=== PATIENT | male | born 1970 | race Hispanic/Latino ===

== ENCOUNTER 2023-03-01 15:01 | Emergency (ER) | payer SELFPAY ==
[2023-03-01 15:04] VITALS: BP 102/70; PULSE 102; RESP 17; TEMP 36.3; O2SAT 98; BMI 25.8
--- NOTE | 2023-03-01 16:40 | DI.CT.S_ITS ---
PROCEDURE: CT HEAD/BRAIN WO CON INDICATIONS: feels weird. Patient reports history of concussion. TECHNIQUE: Noncontrast 4.5 mm thick angled axial sections acquired from the foramen magnum to the vertex, with coronal and sagittal reformats. For radiation dose reduction, the following was used: automated exposure control, adjustment of mA and/or kV according to patient size. COMPARISON: None. FINDINGS: Image quality: Excellent. CSF spaces: Basal cisterns are patent. No extra-axial fluid collections. Ventricles are normal in size and shape. Brain: No midline shift. No intracranial masses or hemorrhage. Alexis-white matter interface is normal. Skull and face: Calvarium and visualized facial bones are intact, without suspicious lesions. Sinuses: Circumferential thickening of the left maxillary sinus and trace mucosal thickening of the right maxillary sinus. IMPRESSION: No acute intracranial pathology. Dictated by: Ata Burnett M.D. on 03/01/2023 at 16:57 Approved by: Ata Burnett M.D. on 03/01/2023 at 17:01
[2023-03-01 17:03] LABS: Appearance Urine UA CLEAR; Bilirubin Urine UA NEGATIVE (NEGATIVE); Color Urine UA YELLOW; Glucose Urine UA NEGATIVE (Negative); Ketones Urine UA NEGATIVE (NEGATIVE); Leukocyte Esterase Urine UA 2+ (NEGATIVE); Nitrite Urine UA NEGATIVE (Negative); Occult Blood Urine UA NEGATIVE (Negative); Protein Urine UA NEGATIVE (Negative); Urobilinogen Urine UA 0.2 E.U./dL (0.2)
[2023-03-01 17:06] LABS: UR Morphine/Opiate cutoff 300 Negative (Negative); Ur Creatinine Normal (Normal); Ur Specific Gravity Normal (Normal); Urine Amphetamines Negative (Negative); Urine Barbiturates Negative (Negative); Urine Benzodiazepines Negative (Negative); Urine Cocaine Negative (Negative); Urine MDMA Negative (Negative); Urine Methadone Negative (Negative); Urine Methamphetamines Negative (Negative); Urine Oxycodone Negative (Negative); Urine Phencyclidine Negative (Negative); Urine Tetrahydrocannabinol Negative (Negative); Urine Tricyclic Antidepressant Negative (Negative); Urine pH Normal (Normal)
[2023-03-01 17:10] LABS: Add Manual Diff / Slide Review NO; Basophils Absolute Auto 100 /uL (0-100); Basophils Percent Auto 0.8 % (0-2); Eosinophils Absolute Auto 100 /uL (0-450); Eosinophils Percent Auto 0.7 % (2-4); Hematocrit 38.4 % (41-53); Hemoglobin 13.3 g/dL (13.5-17.5); Lymphocytes Absolute Auto 1400 /uL (1100-4500); Lymphocytes Percent Auto 16.7 % (25-40); Mean Corpuscular HGB Conc 34.5 % (30-36); Mean Corpuscular Hemoglobin 30.5 PG (26-34); Mean Corpuscular Volume 88.2 fL (80-100); Monocytes Absolute Auto 500 /uL (0-900); Monocytes Percent Auto 5.8 % (3-14); Neutrophils Absolute Auto 6200 /uL (1500-7000); Platelet Count 279 X10^3/uL (150-400); Red Blood Cell Count 4.35 X10^6/uL (4.5-5.9); Red Cell Distribution Width 12.7 % (11.6-14.8); White Blood Cell Count 8.1 X10^3/uL (4.5-11.0)
[2023-03-01 17:13] LABS: Bacteria Urine None Seen; Culture Indicated Urine Specimen Cultured; Mucus Urine 1+ (Negative); RBC Urine None Seen (0-5/HPF); Squamous Epithelial Cell Urine None Seen (0-5/HPF); WBC Urine 0-1/HPF (0-5/HPF)
[2023-03-01 17:15] LABS: Alanine Aminotransferase 17 IU/L (<50); Albumin 4.3 g/dL (3.5-5.0); Albumin Globulin Ratio 1.3 (1.0-2.8); Alkaline Phosphatase 83 U/L (38-126); Aspartate Aminotransferase 24 IU/L (17-59); BUN Creatinine Ratio 11.4 (6-22); Bilirubin Total 0.8 mg/dL (0.2-1.3); Blood Urea Nitrogen 10 mg/dL (9-20); Carbon Dioxide 30 mmol/L (22-32); Chloride 99 mmol/L (98-107); Estimated Glomerular Filt Rate > 60 mL/min (>60); Globulin 3.3 g/dL (1.7-4.1); Glucose 87 mg/dL (70-100); HEMOLYSIS < 15 (0-50); Sodium 137 mmol/L (137-145); Total Protein 7.6 g/dL (6.3-8.2)
[2023-03-01 17:28] LABS: COVID19 -Nasal RAPID Negative (Negative)
--- NOTE | 2023-03-01 17:28 | ED_ITS ---
HPI - Head Injury <Chelsea Felder, [facility] - Last Filed: 03/01/23 18:42> General Chief complaint: Weakness Stated complaint: feeling weird Time Seen by Provider: 03/01/23 15:41 Source: patient Mode of arrival: Ambulatory History of Present Illness HPI Narrative: This is a 52-year-old [place]er-speaking male who presents to the emergency department after a closed head injury in July of 2022 stating he had a close head injury and July with a concussion, states that since then he is had symptoms of being tired, having muscle aches, feeling disoriented, having fears about what he is doing, tremors and difficulty workman. States that his symptoms have gotten worse over the last few days, denies being on blood thinners, does not have any current life stressors, denies any new medications, denies any stool changes or urinary changes. Denies upper respiratory symptoms. Denies vomiting, neck pain, states that he is had blurry vision since this head injury and had to get glasses and he has not had any resolution in the blurry vision. States that it becomes worse with activity and his vision has not felt good, he endorses feeling unstable when walking, he is had muscle wasting and 25 lb of weight loss without changes in his diet. He is eating and drinking plenty of water he states. He endorses extreme muscle fatigue and states that he can not tolerate normal activities and has not been able to go back to work. He states that he is extremely anxious about his symptoms, he had an MRI of his s pine in [place] in August which did not show any cervical thoracic or lumbar spine abnormalities other than cervical spine arthritis and degenerative joint disease. States that he has not been feeling like himself. He is had brain fog, difficulty with his thoughts, blurry vision and feeling unstable since this incident. States that his vision is getting worse. He comes to the emergency department today for an MR of his brain states that his primary care provider completed lab work and other studies which all came back negative. He denies any drug use. Denies alcohol consumption. Related Data Previous Rx's Medication Instructions Recorded lorazepam 1 mg tablet 1 mg PO BID PRN anxiety #10 tabs 03/01/23 nitrofurantoin 100 mg PO BID 5 days #10 caps 03/01/23 monohydrate/macrocrystals 100 mg capsule (Macrobid) Allergies Allergy/AdvReac Type Severity Reaction Status Date / Time No Known Drug Allergies Allergy Verified 03/01/23 15:28 Review of Systems <TAZ Villanueva - Last Filed: 03/01/23 18:42> Review of Systems ROS Unobtainable: All systems reviewed & are unremarkable except as noted in HPI and below Patient History <TAZ Villanueva - Last Filed: 03/01/23 18:42> Social History Smoking Status: Never smoker Smoking Status: Never smoker Substance Use Type: does not use Exam <TAZ Villanueva - Last Filed: 03/01/23 18:42> Narrative Exam Narrative: Reviewed vitals signs and nursing notes. General: Pleasant, sitting upright, in no acute distress, well groomed, afebrile HEENT: symmetrical facial expressions, moist mucous membranes, neck is supple, no midline cervical spine tenderness palpation, patient is wearing glasses, states they are new since the accident needs blurry vision CV: regular rate and rhythm, warm extremities Respiratory: normal work of breathing, without tachypnea or hypoxia. GI: abdomen soft, nondistended, without CVA tenderness bilaterally. MSK: moves all extremities, no weakness, normal tone, ambulatory without deficit Skin: brisk capillary refill, without rash or wound Neuro: clear speech and normal cognition, A&O x3, GCS 15, no focal motor or sensation deficits Initial Vital Signs Initial Vital Signs: Vital Signs Temperature 97.4 F L 03/01/23 15:04 Pulse Rate 102 H 03/01/23 15:04 Respiratory Rate 17 03/01/23 15:04 Blood Pressure 102/70 03/01/23 15:04 Pulse Oximetry 98 03/01/23 15:04 Oxygen Delivery Method Room Air 03/01/23 15:04 <Bimal Shah DO - Last Filed: 03/02/23 20:02> Initial Vital Signs Initial Vital Signs: Vital Signs Temperature 97.4 F L 03/01/23 15:04 Pulse Rate 102 H 03/01/23 15:04 Respiratory Rate 17 03/01/23 15:04 Blood Pressure 102/70 03/01/23 15:04 Pulse Oximetry 98 03/01/23 15:04 Oxygen Delivery Method Room Air 03/01/23 15:04 Course <AMY VillanuevaP - Last Filed: 03/01/23 18:42> Orders Ordered: Discontinued Medications Acetaminophen (Acetaminophen 325 Mg Tablet) 975 mg PO NOW ONE Stop: 03/01/23 17:31 Last Admin: 03/01/23 18:10 Dose: 975 mg Documented By: CELESTINA Ketorolac Tromethamine (Ketorolac 10 Mg Tablet) 10 mg PO NOW ONE Stop: 03/01/23 17:31 Last Admin: 03/01/23 18:10 Dose: 10 mg Documented By: CELESTINA Lorazepam (Lorazepam 2 Mg/Ml Inj) 1 mg IV NOW ONE Stop: 03/01/23 18:17 Last Admin: 03/01/23 18:24 Dose: Not Given Documented By: CLAUDETTE Nitrofurantoin Macrocrystals (Nitrofurantoin Er 100 Mg Capsule) 100 mg PO NOW ONE Stop: 03/01/23 17:31 Last Admin: 03/01/23 18:10 Dose: 100 mg Documented By: CELESTINA Vital Signs Vital signs: Vital Signs - 8 hr 03/01/23 15:04 03/01/23 18:41 Temperature 97.4 F L Pulse Rate 102 H 77 Respiratory Rate 17 17 Blood Pressure 102/70 120/73 Pulse Oximetry 98 99 Oxygen Delivery Method Room Air Room Air <Bimal Shah DO - Last Filed: 03/02/23 20:02> Orders Ordered: Discontinued Medications Acetaminophen (Acetaminophen 325 Mg Tablet) 975 mg PO NOW ONE Stop: 03/01/23 17:31 Last Admin: 03/01/23 18:10 Dose: 975 mg Documented By: CELESTINA Ketorolac Tromethamine (Ketorolac 10 Mg Tablet) 10 mg PO NOW ONE Stop: 03/01/23 17:31 Last Admin: 03/01/23 18:10 Dose: 10 mg Documented By: CELESTINA Lorazepam (Lorazepam 2 Mg/Ml Inj) 1 mg IV NOW ONE Stop: 03/01/23 18:17 Last Admin: 03/01/23 18:24 Dose: Not Given Documented By: CLAUDETTE Nitrofurantoin Macrocrystals (Nitrofurantoin Er 100 Mg Capsule) 100 mg PO NOW ONE Stop: 03/01/23 17:31 Last Admin: 03/01/23 18:10 Dose: 100 mg Documented By: CELESTINA Vital Signs Vital signs: Vital Signs - 8 hr 03/01/23 15:04 03/01/23 18:41 Temperature 97.4 F L Pulse Rate 102 H 77 Respiratory Rate 17 17 Blood Pressure 102/70 120/73 Pulse Oximetry 98 99 Oxygen Delivery Method Room Air Room Air MDM - Head Injury <Chelsea Felder, [facility] - Last Filed: 03/01/23 18:42> Lab Data 03/01/23 16:45 03/01/23 16:45 Labs: Lab Results 03/01/23 03/01/23 03/01/23 Range/Units 16:45 16:45 16:45 WBC 8.1 (4.5-11.0) X10^3/uL RBC 4.35 L (4.5-5.9) X10^6/uL Hgb 13.3 L (13.5-17.5) g/dL Hct 38.4 L (41-53) % MCV 88.2 (80-100) fL MCH 30.5 (26-34) PG MCHC 34.5 (30-36) % RDW 12.7 (11.6-14.8) % Plt Count 279 (150-400) X10^3/uL Neut % (Auto) 76.0 H (50-75) % Lymph % (Auto) 16.7 L (25-40) % Louisa % (Auto) 5.8 (3-14) % Eos % (Auto) 0.7 L (2-4) % Baso % (Auto) 0.8 (0-2) % Neut # (Auto) 6200 (8636-3158) /uL Lymph # (Auto) 1400 (5965-7219) /uL Louisa # (Auto) 500 (0-900) /uL Eos # (Auto) 100 (0-450) /uL Baso # (Auto) 100 (0-100) /uL Sodium 137 (137-145) mmol/L Potassium 4.0 (3.4-5.1) mmol/L Chloride 99 (98-107) mmol/L Carbon Dioxide 30 (22-32) mmol/L BUN 10 (9-20) mg/dL Creatinine 0.88 (0.66-1.25) mg/dL Estimated GFR > 60 (>60) mL/min BUN/Creatinine Ratio 11.4 (6-22) Glucose 87 (70-100) mg/dL Calcium 9.0 (8.4-10.2) mg/dL Magnesium 2.0 (1.6-2.3) mg/dL Total Bilirubin 0.8 (0.2-1.3) mg/dL AST 24 (17-59) IU/L ALT 17 (<50) IU/L Alkaline Phosphatase 83 (38-126) U/L Total Protein 7.6 (6.3-8.2) g/dL Albumin 4.3 (3.5-5.0) g/dL Globulin 3.3 (1.7-4.1) g/dL Albumin/Globulin Ratio 1.3 (1.0-2.8) Urine Color Urine Appearance Urine pH (4.5-8.0) Ur Specific [place] (1.000-1.035) Urine Protein (Negative) Urine Glucose (UA) (Negative) g/dL Urine Ketones (NEGATIVE) Urine Occult Blood (Negative) Urine Nitrate (Negative) Urine Bilirubin (NEGATIVE) Urine Urobilinogen (0.2) E.U./dL Ur Leukocyte Esterase (NEGATIVE) Urine RBC (0-5/HPF) Urine WBC (0-5/HPF) Ur Squamous Epith Cells (0-5/HPF) Urine Bacteria (None) Urine Mucus (Negative) Ur Culture Indicated? U Opiates 300ng/mL cut (Negative) Ur Oxycodone Screen (Negative) Urine Methadone Screen (Negative) Ur Barbiturates Screen (Negative) U Tricyclic Antidepress (Negative) Ur Phencyclidine Scrn (Negative) Ur Amphetamines Screen (Negative) U Methamphetamines Scrn (Negative) Ur MDMA Scrn (Ecstasy) (Negative) U Benzodiazepines Scrn (Negative) Urine Cocaine Screen (Negative) U Marijuana (THC) Screen (Negative) SARS-CoV-2 (PCR) (Negative) 03/01/23 03/01/23 03/01/23 Range/Units 16:45 17:00 17:00 WBC (4.5-11.0) X10^3/uL RBC (4.5-5.9) X10^6/uL Hgb (13.5-17.5) g/dL Hct (41-53) % MCV (80-100) fL MCH (26-34) PG MCHC (30-36) % RDW (11.6-14.8) % Plt Count (150-400) X10^3/uL Neut % (Auto) (50-75) % Lymph % (Auto) (25-40) % Louisa % (Auto) (3-14) % Eos % (Auto) (2-4) % Baso % (Auto) (0-2) % Neut # (Auto) (0497-3547) /uL Lymph # (Auto) (3772-3597) /uL Louisa # (Auto) (0-900) /uL Eos # (Auto) (0-450) /uL Baso # (Auto) (0-100) /uL Sodium (137-145) mmol/L Potassium (3.4-5.1) mmol/L Chloride (98-107) mmol/L Carbon Dioxide (22-32) mmol/L BUN (9-20) mg/dL Creatinine (0.66-1.25) mg/dL Estimated GFR (>60) mL/min BUN/Creatinine Ratio (6-22) Glucose (70-100) mg/dL Calcium (8.4-10.2) mg/dL Magnesium (1.6-2.3) mg/dL Total Bilirubin (0.2-1.3) mg/dL AST (17-59) IU/L ALT (<50) IU/L Alkaline Phosphatase (38-126) U/L Total Protein (6.3-8.2) g/dL Albumin (3.5-5.0) g/dL Globulin (1.7-4.1) g/dL Albumin/Globulin Ratio (1.0-2.8) Urine Color Yellow Urine Appearance Clear Urine pH 6.0 (4.5-8.0) Ur Specific [place] 1.010 (1.000-1.035) Urine Protein Negative (Negative) Urine Glucose (UA) Negative (Negative) g/dL Urine Ketones Negative (NEGATIVE) Urine Occult Blood Negative (Negative) Urine Nitrate Negative (Negative) Urine Bilirubin Negative (NEGATIVE) Urine Urobilinogen 0.2 (0.2) E.U./dL Ur Leukocyte Esterase 2+ H (NEGATIVE) Urine RBC None seen (0-5/HPF) Urine WBC 0-1/hpf (0-5/HPF) Ur Squamous Epith Cells None seen (0-5/HPF) Urine Bacteria None seen (None) Urine Mucus 1+ H (Negative) Ur Culture Indicated? Specimen cultured U Opiates 300ng/mL cut Negative (Negative) Ur Oxycodone Screen Negative (Negative) Urine Methadone Screen Negative (Negative) Ur Barbiturates Screen Negative (Negative) U Tricyclic Antidepress Negative (Negative) Ur Phencyclidine Scrn Negative (Negative) Ur Amphetamines Screen Negative (Negative) U Methamphetamines Scrn Negative (Negative) Ur MDMA Scrn (Ecstasy) Negative (Negative) U Benzodiazepines Scrn Negative (Negative) Urine Cocaine Screen Negative (Negative) U Marijuana (THC) Screen Negative (Negative) SARS-CoV-2 (PCR) Negative (Negative) Imaging Data CT scan - head: Radiologist's Impression: [address] [address] [address] Scan Report Signed Patient: hetal lopez MR#: [id number] : 1970 Acct:[id number] Age/Sex: 52 / M Date of Service: 03/01/23 Loc: ED Accession Number: [id number] ?? Procedure: CT head/brain wo con Ordering Provider: Bimal Shah D.O. PROCEDURE:? CT HEAD/BRAIN WO CON ? INDICATIONS:? feels weird.? Patient reports history of concussion. ? TECHNIQUE:? Noncontrast 4.5 mm thick angled axial sections acquired from the foramen magnum to the vertex, with coronal and sagittal reformats.? For radiation dose reduction, the following was used:? automated exposure control, adjustment of mA and/or kV according to patient size.? ? COMPARISON:? None. ? FINDINGS:? Image quality:? Excellent.? ? CSF spaces:? Basal cisterns are patent.? No extra-axial fluid collections.? Ventricles are normal in size and shape.? ? Brain:? No midline shift.? No intracranial masses or hemorrhage.? Alexis-white matter interface is normal.? ? Skull and face:? Calvarium and visualized facial bones are intact, without suspicious lesions.? ? Sinuses:? Circumferential thickening of the left maxillary sinus and trace mucosal thickening of the right maxillary sinus. ? IMPRESSION:? No acute intracranial pathology.? ? ? Dictated by: Ata Burnett M.D. on 03/01/2023 at 16:57 ? ? Approved by: Ata Burnett M.D. on 03/01/2023 at 17:01 ? [facility] Narrative Medical decision making narrative: Chief Complaint: post concussive symptoms Multiple etiologies for patient's complaint considered including, but not limited to: Posterior circulation infarction, postconcussive syndrome, intracra nial hemorrhage, cerebellar infarct, CVA I have independently reviewed the patient's vital signs and nursing notes as well as prior records if available. Plan: Patient has severe anxiety, states that he has claustrophobia and can not tolerate small closed spaces, states that he is tried MR in the past and did not tolerated due to the pills in his anxiety and need IV sedation. Ordered IV plus lorazepam IV x1 to help him anxiety, reassured the patient multiple times, he has been neurologically intact, no focal neuro deficits on my neurologic exam, he is ambulatory, clear speech, pupils are equal and reactive, EOMI, he does not have any focal motor weakness on my exam and his reflexes are intact bilaterally without deficit. Manufacturing Technician used for all conversations Patient then states that his primary care provider ordered him an MRI for Saturday with sedation that is scheduled because he can not tolerate claustrophobia and failed in the outpatient setting previously due to anxiety. He was given a prescription of lorazepam p.o. b.i.d., he was also given a prescription of Macrobid for leukocyte esterase and frequent urination symptoms concerning for UTI. He understands to follow-up with his PCP as they will follow-up with him regarding his post concussive syndrome and MRI results. Strict return precautions for discussed. I do not suspect any acute changes at this time or any dangerous this etiology needing admission or surgery. Social considerations that may affect disposition: none Questions are addressed and there is agreement with the plan and for follow-up. I consulted with the ED attending physician Dr. Shah as needed for higher level of care considerations and they were available for discussion and recommendations regarding plan of care and diagnostic testing. Patient is appropriate for outpatient management. <Bimal Shah, DO - Last Filed: 03/02/23 20:02> Lab Data Labs: Lab Results 03/01/23 03/01/23 03/01/23 Range/Units 16:45 16:45 16:45 WBC 8.1 (4.5-11.0) X10^3/uL RBC 4.35 L (4.5-5.9) X10^6/uL Hgb 13.3 L (13.5-17.5) g/dL Hct 38.4 L (41-53) % MCV 88.2 (80-100) fL MCH 30.5 (26-34) PG MCHC 34.5 (30-36) % RDW 12.7 (11.6-14.8) % Plt Count 279 (150-400) X10^3/uL Neut % (Auto) 76.0 H (50-75) % Lymph % (Auto) 16.7 L (25-40) % Louisa % (Auto) 5.8 (3-14) % Eos % (Auto) 0.7 L (2-4) % Baso % (Auto) 0.8 (0-2) % Neut # (Auto) 6200 (6293-4484) /uL Lymph # (Auto) 1400 (0303-5542) /uL Louisa # (Auto) 500 (0-900) /uL Eos # (Auto) 100 (0-450) /uL Baso # (Auto) 100 (0-100) /uL Sodium 137 (137-145) mmol/L Potassium 4.0 (3.4-5.1) mmol/L Chloride 99 (98-107) mmol/L Carbon Dioxide 30 (22-32) mmol/L BUN 10 (9-20) mg/dL Creatinine 0.88 (0.66-1.25) mg/dL Estimated GFR > 60 (>60) mL/min BUN/Creatinine Ratio 11.4 (6-22) Glucose 87 (70-100) mg/dL Calcium 9.0 (8.4-10.2) mg/dL Magnesium 2.0 (1.6-2.3) mg/dL Total Bilirubin 0.8 (0.2-1.3) mg/dL AST 24 (17-59) IU/L ALT 17 (<50) IU/L Alkaline Phosphatase 83 (38-126) U/L Total Protein 7.6 (6.3-8.2) g/dL Albumin 4.3 (3.5-5.0) g/dL Globulin 3.3 (1.7-4.1) g/dL Albumin/Globulin Ratio 1.3 (1.0-2.8) Urine Color Urine Appearance Urine pH (4.5-8.0) Ur Specific [place] (1.000-1.035) Urine Protein (Negative) Urine Glucose (UA) (Negative) g/dL Urine Ketones (NEGATIVE) Urine Occult Blood (Negative) Urine Nitrate (Negative) Urine Bilirubin (NEGATIVE) Urine Urobilinogen (0.2) E.U./dL Ur Leukocyte Esterase (NEGATIVE) Urine RBC (0-5/HPF) Urine WBC (0-5/HPF) Ur Squamous Epith Cells (0-5/HPF) Urine Bacteria (None) Urine Mucus (Negative) Ur Culture Indicated? U Opiates 300ng/mL cut (Negative) Ur Oxycodone Screen (Negative) Urine Methadone Screen (Negative) Ur Barbiturates Screen (Negative) U Tricyclic Antidepress (Negative) Ur Phencyclidine Scrn (Negative) Ur Amphetamines Screen (Negative) U Methamphetamines Scrn (Negative) Ur MDMA Scrn (Ecstasy) (Negative) U Benzodiazepines Scrn (Negative) Urine Cocaine Screen (Negative) U Marijuana (THC) Screen (Negative) SARS-CoV-2 (PCR) (Negative) 03/01/23 03/01/23 03/01/23 Range/Units 16:45 17:00 17:00 WBC (4.5-11.0) X10^3/uL RBC (4.5-5.9) X10^6/uL Hgb (13.5-17.5) g/dL Hct (41-53) % MCV (80-100) fL MCH (26-34) PG MCHC (30-36) % RDW (11.6-14.8) % Plt Count (150-400) X10^3/uL Neut % (Auto) (50-75) % Lymph % (Auto) (25-40) % Louisa % (Auto) (3-14) % Eos % (Auto) (2-4) % Baso % (Auto) (0-2) % Neut # (Auto) (7347-6680) /uL Lymph # (Auto) (7113-0336) /uL Louisa # (Auto) (0-900) /uL Eos # (Auto) (0-450) /uL Baso # (Auto) (0-100) /uL Sodium (137-145) mmol/L Potassium (3.4-5.1) mmol/L Chloride (98-107) mmol/L Carbon Dioxide (22-32) mmol/L BUN (9-20) mg/dL Creatinine (0.66-1.25) mg/dL Estimated GFR (>60) mL/min BUN/Creatinine Ratio (6-22) Glucose (70-100) mg/dL Calcium (8.4-10.2) mg/dL Magnesium (1.6-2.3) mg/dL Total Bilirubin (0.2-1.3) mg/dL AST (17-59) IU/L ALT (<50) IU/L Alkaline Phosphatase (38-126) U/L Total Protein (6.3-8.2) g/dL Albumin (3.5-5.0) g/dL Globulin (1.7-4.1) g/dL Albumin/Globulin Ratio (1.0-2.8) Urine Color Yellow Urine Appearance Clear Urine pH 6.0 (4.5-8.0) Ur Specific [place] 1.010 (1.000-1.035) Urine Protein Negative (Negative) Urine Glucose (UA) Negative (Negative) g/dL Urine Ketones Negative (NEGATIVE) Urine Occult Blood Negative (Negative) Urine Nitrate Negative (Negative) Urine Bilirubin Negative (NEGATIVE) Urine Urobilinogen 0.2 (0.2) E.U./dL Ur Leukocyte Esterase 2+ H (NEGATIVE) Urine RBC None seen (0-5/HPF) Urine WBC 0-1/hpf (0-5/HPF) Ur Squamous Epith Cells None seen (0-5/HPF) Urine Bacteria None seen (None) Urine Mucus 1+ H (Negative) Ur Culture Indicated? Specimen cultured U Opiates 300ng/mL cut Negative (Negative) Ur Oxycodone Screen Negative (Negative) Urine Methadone Screen Negative (Negative) Ur Barbiturates Screen Negative (Negative) U Tricyclic Antidepress Negative (Negative) Ur Phencyclidine Scrn Negative (Negative) Ur Amphetamines Screen Negative (Negative) U Methamphetamines Scrn Negative (Negative) Ur MDMA Scrn (Ecstasy) Negative (Negative) U Benzodiazepines Scrn Negative (Negative) Urine Cocaine Screen Negative (Negative) U Marijuana (THC) Screen Negative (Negative) SARS-CoV-2 (PCR) Negative (Negative) Discharge Plan Departure Patient Disposition: Home Clinical Impression: Post concussion syndrome Closed head injury Qualifiers: Encounter type: sequela Qualified Code(s): S09.90XS - Unspecified injury of head, sequela Urinary tract infection Qualifiers: Urinary tract infection type: site unspecified Hematuria presence: without hematuria Qualified Code(s): N39.0 - Urinary tract infection, site not specified Instructions: DI for Urinary Tract Infection (UTI), DI for Postconcussion Syndrome Activity Restrictions/Additional Instructions: *You have been diagnosed with postconcussive syndrome. Since you need sedation for your MRI, please go to this on Saturday since this is very important for you. This may have all of the answers that you need and I need you to follow-up with your primary care provider about this. I want you to reduce all of your stressors in the meantime, try and reduce your stress, your physical energy and your mental energy and take it very easy with a calm environment. If your symptoms improve while you do that then you know it is related to those activities. Sometimes people do not get better from concussion because they continue to expand energy with the brain and body. That will not allow the brain to heal. I need you to relax and take it easy until Saturday and I want you to have that MRI because that is test that you need the most. Please do not worrisome much because I know that you are safe and you will get better after you know what the problem is. Sometimes fear is worse than the injury itself and can make you feel symptoms that are not caused by the body. Continue drinking plenty of water. I hope that you do feel better soon, this is not dangerous to go home with today I want you to sleep as well as you can, take Tylenol and ibuprofen together, rest, come back if you have new vision loss, new weakness, new dangerous symptoms of concern. We are not able to get an MRI without sedation in the emergency department. I have given you some medications for anxiety to help as needed, please take this if you need to, please try and reduce your anxiety as the testing will, with the reasons why. Your primary care provider will follow-up with you about this. Please go back to them, it is their responsibility since they ordered this test and they will take care of your care related to that problem. *What to do: *Please continue to take your regular medications as directed. [ x] New medication prescriptions sent to your pharmacy: [ [facility]] [ ] New medication written as a paper prescription [ ] No new medications given *Please call and schedule follow up with your primary care provider in 2-3 days, at least for an update. Let them know you were seen in the Emergency Department for the above problem. We will electronically transmit a record of today's note if your PCP or specialist is in our system. *If you do not have a primary care provider please contact [phone] to establish care with one of the [facility] primary care providers. *Return to the Emergency Department for worsening symptoms, inability to keep liquids down, fever greater than 101F, chills, or other concerning symptom. Prescriptions: New nitrofurantoin monohyd/m-cryst [Macrobid] 100 mg capsule 100 mg PO BID 5 Days Qty: 10 0RF Rx Instructions: must administer with a meal/food lorazepam 1 mg tablet 1 mg PO BID PRN (Reason: anxiety) Qty: 10 0RF Stand Alone Forms: Patient Portal/API <Bimal Shah, - Last Filed: 03/02/23 20:02> Cosign ED Attending Louature Attestation: I was immediately available in the department for consultation. Documentation has been reviewed. I agree with assessment and plan.
--- NOTE | 2023-03-01 17:29 | PC.NURSE ---
At 1725 pt called RN to state I cannot feel my right arm He states this began several minutes ago. Veronica Crew CHIP TESTER at bedside and notified.
[2023-03-01] MEDS: ACETAMINOPHEN 325 MG TABLET 975 MG PO (18:10)
[2023-03-01] MEDS: KETOROLAC 10 MG TABLET PO (18:10)
[2023-03-01] MEDS: NITROFURANTOIN ER 100 MG CAPSULE PO (18:10)
[2023-03-01 18:41] VITALS: BP 120/73; PULSE 77; RESP 17; O2SAT 99
--- NOTE | 2023-03-01 18:44 | PC.NURSE ---
1800 Per Susan MERINO patient reports sudden numbness in right arm. SIGNS SALES REPRESENTATIVE Crew aware and I gave her the ipad at this time.
--- NOTE | 2023-03-01 18:46 | PC.NURSE ---
1830 At this time I spoke with the library media technician who reports to me that the patient can only have an MRI under full sedation, ativan is not enough. Using the prize fighter services on the ipad to speak with the patient, he told me that he has an appointment on Saturday for an MRI under full sedation at [place]. I relayed this information to [facility] Crew and she began discharge instructions. I then used the Ipad interpeter to again speak with the patient and explain plan for discharge and follow up with MRI in [place]. Patient verbalizes understanding. Upon DC i walked the patient to the front office representative to discuss financial operations analyst.
== END 2023-03-01 18:49 | disposition home or self-care (01) ==
PROVIDERS: Emergency Medicine; Emergency Provider Nurse Practitioner Critical Care Medicine
DX: F07.81 Postconcussional syndrome (principal); N39.0 Urinary tract infection, site not specified; R63.4 Abnormal weight loss; Z20.822 Contact with and (suspected) exposure to COVID-19
CPT/HCPCS: 36415; 70450; 80053; 80305; 81001; 83735; 85025; 87086; 87635; 99284; C9803

== ENCOUNTER 2023-03-03 10:07 | Emergency (ER) | payer SELFPAY ==
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
[2023-03-03 10:22] VITALS: BP 123/77; PULSE 77; RESP 19; TEMP 36.6; O2SAT 99; BMI 25.7
== END 2023-03-03 11:10 | disposition home or self-care (01) ==
PROVIDERS: Emergency Provider Emergency Medicine
DX: M62.830 Muscle spasm of back (principal); N39.0 Urinary tract infection, site not specified
CPT/HCPCS: 81003; 99281; 99282

== ENCOUNTER 2023-03-09 09:59 | Emergency (ER) | payer SELFPAY ==
[2023-03-09 10:01] VITALS: BP 127/84; PULSE 75; RESP 15; TEMP 36.8; O2SAT 97
--- NOTE | 2023-03-09 10:09 | PC.NURSE ---
Pt has right ear pain,worse if he touches his ear.
--- NOTE | 2023-03-09 10:14 | ED_ITS ---
HPI - General Adult General Chief complaint: Ear Stated complaint: Pain in Rt Ear Time Seen by Provider: 03/09/23 10:04 Source: patient Mode of arrival: Ambulatory Limitations: no limitations History of Present Illness HPI narrative: Patient is a 52-year-old male who is here for evaluation of right ear pain. He states that it has been present for the past couple days. No cough. No sore throat. It is uncomfortable when he moves his outer ear and touches his ear. No change in hearing to the right ear. No left ear pain. Has not tried anything for the symptoms prior to arrival. Related Data Previous Rx's Medication Instructions Recorded lorazepam 1 mg tablet 1 mg PO BID PRN anxiety #10 tabs 03/01/23 Allergies Allergy/AdvReac Type Severity Reaction Status Date / Time No Known Drug Allergies Allergy Verified 03/09/23 10:01 Review of Systems Constitutional Constitutional: Reports system reviewed and no additional complaints, except as documented ENT Ears, Nose, Mouth, and Throat: Reports system reviewed and no additional complaints, except as documented Integumentary/Breasts Skin/Breast: Reports system reviewed and no additional complaints, except as documented Patient History Social History Smoking Status: Never smoker Smoking Status: Never smoker alcohol intake frequency: 0-2 drinks per day Substance Use Type: does not use Exam Initial Vital Signs Initial Vital Signs: Vital Signs Temperature 98.2 F 03/09/23 10:01 Pulse Rate 75 03/09/23 10:01 Respiratory Rate 15 03/09/23 10:01 Blood Pressure 127/84 03/09/23 10:01 Pulse Oximetry 97 03/09/23 10:01 Oxygen Delivery Method Room Air 03/09/23 10:01 HENMT Ears: TM normal on the right, TM normal on the left and EAC abnormal erythema on the right and EAC tenderness on the right; no otic discharge Mouth: oral mucosae normal Resp Effort & Inspection: normal respiratory effort Skin General: no rashes or lesions noted Neuro General: patient alert, patient awake and moves all extremities Course Orders Ordered: ED Orders 03/09/23 10:04 Consult to MARINE UNDERWRITER - Heel Cover Softener Stat Discontinued Medications Neomycin/Polymyxin/Hydrocortisone (Neomy/Polym B/Hc Otic 10 Ml) 4 drops EAR- RIGHT NOW ONE Stop: 03/09/23 10:15 Vital Signs Vital signs: Vital Signs - 8 hr 03/09/23 10:01 Temperature 98.2 F Pulse Rate 75 Respiratory Rate 15 Blood Pressure 127/84 Pulse Oximetry 97 Oxygen Delivery Method Room Air Medical Decision Making MDM Narrative Medical decision making narrative: Patient's physical exam today is consistent with otitis externa. There is no signs of a tympanic membrane rupture. He was given ear drops here in the emergency department and he was sent home with the bottle of the antibiotics that he can continue to take this at home. He did ask for help with social work. This is to help him obtain insurance and other help with his medical needs. There is no director social welfare available here however his information was taken down and will be passed onto our director social welfare. Discharge Plan Departure Patient Disposition: Home Clinical Impression: Otitis externa Instructions: DI for Otitis Externa Activity Restrictions/Additional Instructions: You do need to use the ear drops that you were given here in the emergency department. Please place 3 drops in your right ear 4 times a day for the next 7 days. If there is any remaining medication after this treatment you can discard it. I recommend that you use the information that you were given here to sign up for [facility]. Your information was also passed to our director social welfare to also try to help with obtaining health insurance and a primary doctor. Prescriptions: No Action lorazepam 1 mg tablet 1 mg PO BID PRN (Reason: anxiety) Qty: 10 0RF Referrals: Miscellaneous,[facility] [Primary Care Provider] - Stand Alone Forms: Patient Portal/API
[2023-03-09] MEDS: NEOMY/POLYM B/HC OTIC 10 ML 4 DROPS EAR-RIGHT (10:28)
== END 2023-03-09 10:32 | disposition home or self-care (01) ==
PROVIDERS: Emergency Provider Emergency Medicine
DX: H60.91 Unspecified otitis externa, right ear (principal)
CPT/HCPCS: 99282

== ENCOUNTER 2023-03-10 13:37 | Emergency (ER) | payer SELFPAY ==
[2023-03-10 13:58] VITALS: BP 129/59; PULSE 91; RESP 20; TEMP 36.9; O2SAT 97; BMI 25.8
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
[2023-03-10 15:16] VITALS: BP 128/80; PULSE 77; RESP 16; O2SAT 99
--- NOTE | 2023-03-10 15:43 | PC.NURSE ---
Pt c/o tremors since recent concussion. Fine tremor of hands noted. No focal deficits appreciated. Pt denies anxiety but reports nervousness.
--- NOTE | 2023-03-13 12:37 | CM.SWNOTE ---
ED OIL WELL CABLE TOOL OPERATOR follow up call OIL WELL CABLE TOOL OPERATOR calls patient, patient endorses he would like PCP in [place], he states he does not have insurance. OIL WELL CABLE TOOL OPERATOR attempts to provide patient contact information to sign up for Medicaid insurance, but patient states he does not have a SSN. Patient states he has a PCP in [place], OIL WELL CABLE TOOL OPERATOR encourages patient to f/u with PCP in [place] as PCP clinics at will request insurance from patient. Connie Hawkins, HAIRSPRING TRUING INSPECTOR
== END 2023-03-10 15:25 | disposition home or self-care (01) ==
PROVIDERS: Emergency Provider Emergency Medicine
DX: F07.81 Postconcussional syndrome (principal); F41.9 Anxiety disorder, unspecified
CPT/HCPCS: 99281; 99283

== ENCOUNTER 2023-03-16 11:26 | Emergency (ER) | payer SELFPAY ==
[2023-03-16 11:40] VITALS: BP 125/74; PULSE 75; RESP 20; TEMP 36.2; O2SAT 100; BMI 25.4
[2023-03-16 12:09] VITALS: BMI 25.4
--- NOTE | 2023-03-16 13:49 | ED.ANXIETY ---
HPI - Anxiety <TAZ Villanueva - Last Filed: 03/16/23 14:52> General Chief Complaint: Anxiety Stated Complaint: cold Time Seen by Provider: 03/16/23 11:43 Source: patient Mode of arrival: Ambulatory History of Present Illness HPI narrative: This is a 52-year-old male who presents to the emergency department with sensation of feeling cold. He has been in the emergency department numerous times following his head injury months ago, has received his brain MRI and today states that he feels cold. He has been taking his Ativan and is not missing any Ativan and states that he does not have Ativan withdrawals. He complains of being cold only and wants to know why he is cold. He denies any other symptoms other than being cold. Related Data Previous Rx's Medication Instructions Recorded lorazepam 1 mg tablet 1 mg PO BID PRN anxiety #10 tabs 03/01/23 lorazepam 1 mg tablet (Ativan) 1 mg PO BID PRN shaking #14 tabs 03/10/23 Allergies Allergy/AdvReac Type Severity Reaction Status Date / Time No Known Drug Allergies Allergy Verified 03/16/23 12:05 Review of Systems <TAZ Villanueva - Last Filed: 03/16/23 14:52> Review of Systems ROS Unobtainable: All systems reviewed & are unremarkable except as noted in HPI and below Patient History <TAZ Villanueva - Last Filed: 03/16/23 14:52> Social History Smoking Status: Never smoker Smoking Status: Never smoker alcohol intake frequency: 0-2 drinks per day Substance Use Type: does not use Exam <TAZ Villanueva - Last Filed: 03/16/23 14:52> Narrative Exam Narrative: Reviewed vitals signs and nursing notes. General: Pleasant, sitting upright, is very anxious although not in pain or having any acute symptoms other than feeling cold and anxious at this time, well groomed, afebrile HEENT: symmetrical facial expressions, moist mucous membranes, neck is supple CV: regular rate and rhythm, warm extremities Respiratory: normal work of breathing, without tachypnea or hypoxia. GI: abdomen soft, nondistended, without CVA tenderness bilaterally. MSK: moves all extremities, no weakness, normal tone, ambulatory without deficit Skin: brisk capillary refill, without rash or wound Neuro: clear speech and normal cognition, A&O x3, GCS 15, no focal motor or sensation deficits Initial Vital Signs Initial Vital Signs: Vital Signs Temperature 97.2 F L 03/16/23 11:40 Pulse Rate 75 03/16/23 11:40 Respiratory Rate 20 03/16/23 11:40 Blood Pressure 125/74 03/16/23 11:40 Pulse Oximetry 100 03/16/23 11:40 Oxygen Delivery Method Room Air 03/16/23 11:40 <Kaylin Navas DO - Last Filed: 03/19/23 09:16> Initial Vital Signs Initial Vital Signs: Vital Signs Temperature 97.2 F L 03/16/23 11:40 Pulse Rate 75 03/16/23 11:40 Respiratory Rate 20 03/16/23 11:40 Blood Pressure 125/74 03/16/23 11:40 Pulse Oximetry 100 03/16/23 11:40 Oxygen Delivery Method Room Air 03/16/23 11:40 Course <TAZ Villanueva - Last Filed: 03/16/23 14:52> Orders Ordered: Discontinued Medications Lorazepam (Lorazepam 0.5 Mg Tablet) 1 mg PO NOW ONE Stop: 03/16/23 14:26 Last Admin: 03/16/23 14:48 Dose: Not Given Documented By: MILADIS Vital Signs Vital signs: Vital Signs - 8 hr 03/16/23 11:40 Temperature 97.2 F L Pulse Rate 75 Respiratory Rate 20 Blood Pressure 125/74 Pulse Oximetry 100 Oxygen Delivery Method Room Air <Kaylin Navas DO - Last Filed: 03/19/23 09:16> Orders Ordered: Discontinued Medications Lorazepam (Lorazepam 0.5 Mg Tablet) 1 mg PO NOW ONE Stop: 03/16/23 14:26 Last Admin: 03/16/23 14:48 Dose: Not Given Documented By: OW Vital Signs Vital signs: Vital Signs - 8 hr 03/16/23 11:40 Temperature 97.2 F L Pulse Rate 75 Respiratory Rate 20 Blood Pressure 125/74 Pulse Oximetry 100 Oxygen Delivery Method Room Air MDM - Anxiety <TAZ Villanueva - Last Filed: 03/16/23 14:52> MDM Narrative Medical decision making narrative: Chief Complaint: Anxiety, feeling cold Multiple etiologies for patient's complaint considered including, but not limited to: Acute psychosis, panic disorder, post concussive syndrome/PTSD about his health, anxiety related to health I have independently reviewed the patient's vital signs and nursing notes as well as prior records if available. A social work consultation was placed for resources for therapist for uninsured individuals. Patient does not have a social security number and has been told that he can not have any help. He was referred back to his primary care provider to address his anxiety. We discussed mindfulness, deep breathing exercises, positive self talk, believing in his ability to get better and to try and change his frame of mind when he is thinking negatively and very fearful about his health. I gave him contact information for [facility] and the crisis line, gave him information from the crisis triage service out of [place] and his primary care provider can follow-up with him regarding his mood and anxiety. He was very redirectable, stated understanding and seemed receptive. I gave him 1 mg of lorazepam while he was here because he has not had any today and I told him this will be helpful with his positive life work and methods to reduce his anxiety about his health.. Social considerations that may affect disposition: none Questions are addressed and there is agreement with the plan and for follow-up. I consulted with the ED attending physician Dr. Navas as needed for higher level of care considerations and they were available for discussion and recommendations regarding plan of care and diagnostic testing. Patient is appropriate for outpatient management. Discharge Plan Departure Patient Disposition: Home Clinical Impression: Panic attack, Anxiety about health Instructions: Illness Anxiety Disorder, DI for Anxiety -- Adult, DI for Panic Disorder, Yoga May Help Reduce Anxiety and Stress Activity Restrictions/Additional Instructions: *You have been diagnosed with an anxiety and panic reaction to concerns about your Health. I believe that you are going to get better but it will take a lot of effort to control your mind from over thinking and over-worrying about things. [facility] has counselors but they do not take state insurance, please Call Our [employer] Either you or your health care provider may call? Saturday through Saturday between 9 AM and 3 PM to discuss your treatment needs and guide you to the right provider. Tell them you have a lot of anxiety since your head injury and you need help finding a therapist. Let them know that you have been using Ativan but it is not getting rid of your anxiety. Please schedule follow-up with your primary care provider to discuss this because you may get help through them and you may benefit from an antidepressant with an anxiety medication. This will help you get back in control of your thoughts. I want you to follow-up as needed, please call the crisis line if you have any severe fears or need help talking to somebody about this. You need to eat 3 meals a day and drink plenty of water. *What to do: *Please continue to take your regular medications as directed. [ ] New medication prescriptions sent to your pharmacy: [ ] [ ] New medication written as a paper prescription [ x] No new medications given *Please call and schedule follow up with your primary care provider in 2-3 days, at least for an update. Let them know you were seen in the Emergency Department for the above problem. We will electronically transmit a record of today's note if your PCP or specialist is in our system. *If you do not have a primary care provider please contact [phone] to establish care with one of the [facility] primary care providers. *Return to the Emergency Department for worsening symptoms, inability to keep liquids down, fever greater than 101F, chills, or other concerning symptom. Prescriptions: No Action lorazepam [Ativan] 1 mg tablet 1 mg PO BID PRN (Reason: shaking) Qty: 14 0RF lorazepam 1 mg tablet 1 mg PO BID PRN (Reason: anxiety) Qty: 10 0RF Referrals: [facility] [Outside] Stand Alone Forms: Patient Portal/API <Kaylin Navas, - Last Filed: 03/19/23 09:16> [facility] ED Attending Louature Attestation: I was immediately available in the department for consultation. Documentation has been reviewed.
[2023-03-16 14:50] VITALS: BP 130/78; PULSE 84; RESP 20; O2SAT 100
== END 2023-03-16 14:53 | disposition home or self-care (01) ==
PROVIDERS: Emergency Provider Nurse Practitioner Critical Care Medicine
DX: F41.0 Panic disorder [episodic paroxysmal anxiety] (principal)
CPT/HCPCS: 99281; 99282

== ENCOUNTER 2023-04-03 08:13 | Emergency (ER) | payer SELFPAY ==
[2023-04-03 08:18] VITALS: BP 116/73; PULSE 83; RESP 18; TEMP 36.4; O2SAT 99; BMI 26.4
--- NOTE | 2023-04-03 08:31 | ED.NEUROSD ---
HPI - Neuro Symptoms/Deficit General Chief Complaint: Neuro Symptoms/Deficit Stated Complaint: pain all over body Time Seen by Provider: 04/03/23 08:15 Source: patient Mode of arrival: Ambulatory History of Present Illness HPI Narrative: 52-year-old male is here for evaluation 3 days what he describes as ?pinpricks? that happen throughout his body. He states that they come on and lasts for short period of time and then resolve. They have happened on the top of his head and in his hands and in his feet. He also states he feels hot. No fevers. No chest pain. No shortness of breath. On Anticoagulants: No Related Data Previous Rx's Medication Instructions Recorded lorazepam 1 mg tablet 1 mg PO BID PRN anxiety #10 tabs 03/01/23 lorazepam 1 mg tablet (Ativan) 1 mg PO BID PRN shaking #14 tabs 03/10/23 Allergies Allergy/AdvReac Type Severity Reaction Status Date / Time No Known Drug Allergies Allergy Verified 03/16/23 12:05 Review of Systems Constitutional Constitutional: Reports system reviewed and no additional complaints, except as documented Cardiovascular Cardiovascular: Reports system reviewed and no additional complaints, except as documented Respiratory Respiratory: Reports system reviewed and no additional complaints, except as documented Neurologic Neurologic: Reports system reviewed and no additional complaints, except as documented Hematologic/Lymphatic On Anticoagulants: No Patient History Social History Smoking Status: Never smoker Smoking Status: Never smoker alcohol intake frequency: 0-2 drinks per day Substance Use Type: does not use Exam Initial Vital Signs Initial Vital Signs: Vital Signs Temperature 97.6 F 04/03/23 08:18 Pulse Rate 83 04/03/23 08:18 Respiratory Rate 18 04/03/23 08:18 Blood Pressure 116/73 04/03/23 08:18 Pulse Oximetry 99 04/03/23 08:18 Oxygen Delivery Method Room Air 04/03/23 08:18 HENMT Head: normal to inspection and normocephalic Resp Effort & Inspection: normal respiratory effort Cardio Rate: regular rate Skin General: no rashes or lesions noted Neuro General: patient alert, patient awake and moves all extremities Course Orders Ordered: ED Orders 04/03/23 08:30 Basic Metabolic Panel Stat COVID19 -Nasal RAPID Stat Complete Blood Count AUTO DIFF Stat Vital Signs Vital signs: Vital Signs - 8 hr 04/03/23 08:18 Temperature 97.6 F Pulse Rate 83 Respiratory Rate 18 Blood Pressure 116/73 Pulse Oximetry 99 Oxygen Delivery Method Room Air MDM - Neuro Symptoms/Deficit Lab Data Attestation: I reviewed the patient's lab results. 04/03/23 09:08 04/03/23 09:08 Labs: Lab Results 04/03/23 04/03/23 04/03/23 Range/Units 08:33 09:08 09:08 WBC 5.8 (4.5-11.0) X10^3/uL RBC 4.61 (4.5-5.9) X10^6/uL Hgb 14.0 (13.5-17.5) g/dL Hct 41.1 (41-53) % MCV 89.1 (80-100) fL MCH 30.3 (26-34) PG MCHC 34.0 (30-36) % RDW 13.3 (11.6-14.8) % Plt Count 259 (150-400) X10^3/uL Neut % (Auto) 72.3 (50-75) % Lymph % (Auto) 21.1 L (25-40) % Douglas % (Auto) 4.4 (3-14) % Eos % (Auto) 1.7 L (2-4) % Baso % (Auto) 0.5 (0-2) % Neut # (Auto) 4200 (5321-1015) /uL Lymph # (Auto) 1200 (6262-9499) /uL Douglas # (Auto) 300 (0-900) /uL Eos # (Auto) 100 (0-450) /uL Baso # (Auto) 0 (0-100) /uL Sodium 139 (137-145) mmol/L Potassium 5.0 (3.4-5.1) mmol/L Chloride 101 (98-107) mmol/L Carbon Dioxide 31 (22-32) mmol/L BUN 7 L (9-20) mg/dL Creatinine 0.75 (0.66-1.25) mg/dL Estimated GFR > 60 (>60) mL/min BUN/Creatinine Ratio 9.3 (6-22) Glucose 100 (70-100) mg/dL Calcium 9.0 (8.4-10.2) mg/dL SARS-CoV-2 (PCR) Negative (Negative) MDM Narrative Medical decision making narrative: Patient has had nonspecific ?pinpricks? and tingling throughout his body over the past couple days. He is not having symptoms currently. Low suspicion for CVA/TIA. His electrolytes are unremarkable. Unsure the exact etiology however I have a very high suspicion that this is anxiety. He states he looked on ?Google? about his symptoms and it said that he was ?damaging? his nerves. I reassured him that he was not damaging his nerves and that there was not an emergent process going on. I did advise that he follow-up with his neurologist. Discharge Plan Departure Patient Disposition: Home Clinical Impression: Tingling Instructions: DI for Numbness/Tingling Activity Restrictions/Additional Instructions: I do recommend that you continue to follow-up with your neurologist. Continue to take all of your medications as directed. Prescriptions: No Action lorazepam [Ativan] 1 mg tablet 1 mg PO BID PRN (Reason: shaking) Qty: 14 0RF lorazepam 1 mg tablet 1 mg PO BID PRN (Reason: anxiety) Qty: 10 0RF Referrals: Miscellaneous,Doctor, MD [Primary Care Provider] - Stand Alone Forms: Patient Portal/API
--- NOTE | 2023-04-03 08:41 | PC.NURSE ---
neurologic clinic on phone from [place] on phone with patient. patient called to see if we could have the labs drawn at the same time. syphillis, and thyroid labs to be drawn. clinic will fax request over. spoke with provider and he is okay with having labs drawn. [phone] [facility] Neurology. Dr. Aleman.
[2023-04-03 08:49] LABS: COVID19 -Nasal RAPID Negative (Negative)
[2023-04-03 09:24] LABS: Add Manual Diff / Slide Review NO; Basophils Absolute Auto 0 /uL (0-100); Basophils Percent Auto 0.5 % (0-2); Eosinophils Absolute Auto 100 /uL (0-450); Eosinophils Percent Auto 1.7 % (2-4); Hematocrit 41.1 % (41-53); Lymphocytes Absolute Auto 1200 /uL (1100-4500); Lymphocytes Percent Auto 21.1 % (25-40); Mean Corpuscular Hemoglobin 30.3 PG (26-34); Mean Corpuscular Volume 89.1 fL (80-100); Monocytes Absolute Auto 300 /uL (0-900); Monocytes Percent Auto 4.4 % (3-14); Neutrophils Absolute Auto 4200 /uL (1500-7000); Neutrophils Percent Auto 72.3 % (50-75); Platelet Count 259 X10^3/uL (150-400); Red Blood Cell Count 4.61 X10^6/uL (4.5-5.9); Red Cell Distribution Width 13.3 % (11.6-14.8); White Blood Cell Count 5.8 X10^3/uL (4.5-11.0)
[2023-04-03 09:34] LABS: BUN Creatinine Ratio 9.3 (6-22); Blood Urea Nitrogen 7 mg/dL (9-20); Carbon Dioxide 31 mmol/L (22-32); Chloride 101 mmol/L (98-107); Estimated Glomerular Filt Rate > 60 mL/min (>60); Glucose 100 mg/dL (70-100); HEMOLYSIS < 15 (0-50); Sodium 139 mmol/L (137-145)
[2023-04-03 10:25] VITALS: BP 118/77; PULSE 78; RESP 19; O2SAT 99
== END 2023-04-03 10:26 | disposition home or self-care (01) ==
PROVIDERS: Emergency Provider Emergency Medicine
DX: R20.2 Paresthesia of skin (principal)
CPT/HCPCS: 36415; 80048; 85025; 87635; 99282; 99283; C9803

== ENCOUNTER → 2023-04-03 10:09 | Outpatient (CLI) | payer SELFPAY ==
[2023-04-03 13:56] LABS: Free T3, Triiodothyronine Free 3.75 pg/mL (2.77-5.27); Free T4, Direct Thyroxine 1.06 ng/dL (0.78-2.19)
[2023-04-04 07:40] LABS: Thyroid Peroxidase Antibodies <9 IU/mL (0-34)
[2023-04-10 19:37] LABS: Thyroglobulin Level 6.8 ng/mL (.)
== END ==
PROVIDERS: Referring Provider Psychiatry & Neurology Neurology; Visit Provider Psychiatry & Neurology Neurology
DX: R13.12 Dysphagia, oropharyngeal phase (principal); R25.1 Tremor, unspecified; F41.9 Anxiety disorder, unspecified; M62.50 Muscle wasting and atrophy, not elsewhere classified, unspecified site
CPT/HCPCS: 84432; 84439; 84481; 86376

== ENCOUNTER 2023-04-17 07:23 | Emergency (ER) | payer SELFPAY ==
[2023-04-17 07:35] VITALS: BP 128/81; PULSE 76; RESP 18; TEMP 36.6; O2SAT 99; BMI 26.5
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
== END 2023-04-17 15:07 | disposition left against medical advice (07) ==
PROVIDERS: Emergency Provider Emergency Medicine
CPT/HCPCS: 99281